=== PATIENT | female | born 1995 | race African-American/Black ===

== ENCOUNTER 2023-03-09 10:36 | Inpatient (IN) | payer OTHER ==
[2023-03-08 10:16] LABS: Hematocrit 33.1 % (34.9-44.5); Hemoglobin 11.4 g/dL (12.0-15.5); Platelet Count 247 10x3/uL (150-450)
[2023-03-08 10:40] LABS: HBSAg Index 0.12 S/CO (0-0.99); Hep B Surf Ag Non-Reactive S/CO (NonReactive)
[2023-03-08 10:41] LABS: Syphilis Antibody Nonreactive (Nonreactive); Syphilis Antibody Index 0.08 S/CO (<1.00 Non-Reactive)
[2023-03-09 11:21] VITALS: BMI 56.8
[2023-03-09] MEDS ORDERED: fentaNYL 50 mcg/mL 1 mL Vial ONE (11:41)
[2023-03-09] MEDS ORDERED: Morphine PF 10 MG/10 ML VIAL ONE (11:41)
[2023-03-09] MEDS ORDERED: Oxytocin 10 UNITS/ML VIAL ONE (11:43)
[2023-03-09] MEDS ORDERED: Phenylephrine 40 MG/NS 250 ML 250 ML ONE (11:44)
[2023-03-09] MEDS ORDERED: Ondansetron PF 4 MG/2 ML Vial IVP PRN ×3 (12:13→13:59)
[2023-03-09] MEDS ORDERED: Bicitra 30 ML UDCUP PO PRN (12:13)
[2023-03-09] MEDS ORDERED: Famotidine/PF 20 mg/2ml Vial SLOW IVP PRN (12:13)
[2023-03-09] MEDS ORDERED: Promethazine HCl 25 MG/ML VIAL IM PRN ×2 (12:13→13:59)
[2023-03-09] MEDS ORDERED: Methylergonovine 0.2 MG/ML VIAL IM PRN (12:13)
[2023-03-09] MEDS ORDERED: Misoprostol 200 MCG TAB PR PRN (12:13)
[2023-03-09] MEDS ORDERED: Diphenoxylate HCl/Atropine Tablet PO PRN (12:13)
[2023-03-09] MEDS ORDERED: Tranexamic Acid 1,000 MG/10 ML VIAL IVP PRN (12:13)
[2023-03-09] MEDS ORDERED: Carboprost 250 MCG/ML AMP IM PRN (12:13)
[2023-03-09] MEDS ORDERED: hydrALAZINE 20 MG/ML VIAL SLOW IVP PRN ×2 (12:13→13:44)
[2023-03-09] MEDS ORDERED: Oxytocin 30 units/NS 500 ML 500 ML IV SCH (12:15)
[2023-03-09] MEDS ORDERED: CEFAZOLIN 2 GM in Sodium Chloride 0.9% 100 ML IVPB SCH (12:15)
[2023-03-09] MEDS ORDERED: CEFAZOLIN 2 GM VIAL ONE (12:20)
[2023-03-09] MEDS ORDERED: Phytonadione Neonatal 1 MG/0.5 ML AMP ONE (13:22)
[2023-03-09] MEDS ORDERED: Hepatitis B Vaccine 10 MCG/0.5 ML SYR ONE (13:22)
[2023-03-09] MEDS ORDERED: Erythromycin Base 0.5% Oint 1 GM TUBE ONE (13:22)
[2023-03-09] MEDS ORDERED: Boostrix 0.5 ML (Tdap) VIAL (>/=7 yrs of age) IM ONE (13:44)
[2023-03-09] MEDS ORDERED: Naloxone HCl 0.4 mg/ml Vial IVP PRN ×2 (13:59)
[2023-03-09] MEDS ORDERED: Meperidine HCl/PF 25 MG/ML VIAL SLOW IVP PRN (13:59)
[2023-03-09] MEDS ORDERED: Moisturizing Cream (Eucerin) 113 GM JAR TOP PRN (13:59)
[2023-03-09] MEDS ORDERED: Naloxone HCl 0.4 mg/ml Vial IV PRN (13:59)
[2023-03-09] MEDS ORDERED: Promethazine HCl 25 MG SUPP PR PRN (13:59)
[2023-03-09] MEDS ORDERED: HYDROmorphone 0.5 MG/0.5 ML SYRINGE SLOW IVP PRN (13:59)
[2023-03-09] MEDS ORDERED: diphenhydrAMINE 50 MG/ML VIAL IVP PRN (13:59)
[2023-03-09] MEDS ORDERED: fentaNYL 50 mcg/mL 1 mL Vial SLOW IVP PRN (13:59)
[2023-03-09] MEDS ORDERED: Ketorolac Tromethamine 30 MG/ML VIAL IVP SCH (14:00)
[2023-03-09] MEDS ORDERED: Communication Order-Pharmacy FS SCH (14:00)
[2023-03-09] MEDS ORDERED: Ketorolac Tromethamine 30 MG/ML VIAL IVP PRN (17:32)
[2023-03-09] MEDS: Ferrous Sulfate 325 MG TAB PO SCH (21:23)
[2023-03-09] MEDS: Docusate 100 MG CAP PO SCH (21:24)
[2023-03-10] MEDS ORDERED: diphenhydrAMINE 25 MG CAP PO PRN (03:23)
[2023-03-10 04:06] LABS: Hematocrit 30.6 % (34.9-44.5); Hemoglobin 10.6 g/dL (12.0-15.5); Mean Corpuscular HGB CONC 34.6 g/dL (32.0-36.0); Mean Corpuscular Hemoglobin 30.8 pg (27.0-33.0); Mean Platelet Volume 10.8 fl (7.4-10.4); Platelet Count 208 10x3/uL (150-450); RBC Distribution Width 13.1 % (11.5-14.5); Red Blood Cell (RBC) Count 3.44 10x6/uL (3.90-5.03); White Blood Cell (WBC) Count 8.5 10x3/uL (3.5-10.5)
[2023-03-10] MEDS: HYDROcodone/Acetaminophen 5/325 mg Tablet PO PRN ×3 (07:41→20:34)
[2023-03-10] MEDS: Prenatal Vitamin 1 TAB PO SCH (07:42)
[2023-03-10] MEDS: Docusate 100 MG CAP PO SCH ×2 (07:42→20:33)
[2023-03-10] MEDS: Ferrous Sulfate 325 MG TAB PO SCH ×2 (07:55→20:26)
[2023-03-10] MEDS: Ibuprofen 800 MG TAB PO SCH (20:34)
[2023-03-11] MEDS: Ibuprofen 800 MG TAB PO SCH (05:34)
[2023-03-11] MEDS: HYDROcodone/Acetaminophen 5/325 mg Tablet PO PRN (08:09)
[2023-03-11] MEDS: Prenatal Vitamin 1 TAB PO SCH (08:09)
[2023-03-11] MEDS: Docusate 100 MG CAP PO SCH (08:09)
[2023-03-11] MEDS: Ferrous Sulfate 325 MG TAB PO SCH (09:00)
[2023-03-11 11:24] VITALS: BP 130/88; TEMP 98.1
== END 2023-03-11 12:55 | disposition home or self-care (01) | DRG 788 ==
LOC: CSHLD 10:36 → CSHPP 16:00
PROVIDERS: ADMIT Obstetrics & Gynecology; ATTEND Obstetrics & Gynecology
PROC: 10D00Z1 Extraction of Products of Conception, Low, Open Approach (ICD-10-PCS; principal; 2023-03-09)
DX: O34.211 Maternal care for low transverse scar from previous cesarean delivery (principal); O76 Abnormality in fetal heart rate and rhythm complicating labor and delivery; O99.214 Obesity complicating childbirth; O36.63X0 Maternal care for excessive fetal growth, third trimester, not applicable or unspecified; E66.01 Morbid (severe) obesity due to excess calories; Z3A.39 39 weeks gestation of pregnancy; Z37.0 Single live birth
CPT/HCPCS: 36415; 51702; 85014; 85018; 85027; 85049; 86780; 86850; 86900; 86901; 87340; J1200; J1650; J2274; J2590; J3010

== ENCOUNTER 2023-12-20 09:04 | Outpatient (CLI) | payer OTHER | END 2023-12-20 09:05 | disposition home or self-care (01) | LOC: CSHDTY/OP 09:04 | PROVIDERS: ATTEND Surgery | DX: E66.01 Morbid (severe) obesity due to excess calories (principal) | CPT/HCPCS: 97802 ==